=== PATIENT | female | born 1985 | race Caucasian/White ===

== ENCOUNTER → 2023-05-03 01:39 | Outpatient (CLI) | payer BC, SELFPAY ==
--- NOTE | 2023-05-03 08:15 | DI.US_ITS ---
Exam(s) US NEEDLE LOCAL OTHER WO RAD EXAM: US NEEDLE LOCAL OTHER WO RAD CLINICAL HISTORY: thyroid nodule,ULTRASOUND GUIDED BX,E04.1. COMPARISON: US US SOFT TISSUE HEAD/NECK from 04/11/2023 TECHNIQUE: Ultrasound was provided for guidance with performing thyroid biopsy.. FINDINGS: Please see procedure note for details. DATA REPOSITORY:
--- NOTE | 2023-05-03 13:30 | PAPNONF_PTH ---
PATIENT: Maria Victoria Andrew LOC: [facility] U#:[id number] AGE/SX: 39/F ROOM: RE05/03/[address]: Wanda Rothman : 1985 BED: DIS: SPEC #: [id number] RECD: 05/03/23 13:46 STATUS: MARISELA EDMONDSON #: [id number] SHHAEEN: 05/03/23 13:[address]: Wanda Rothman DEPT: [facility] Cytology RECD BY: Echo Joy ENTERED: 05/03/23 13:50 SP TYPE: CAROL ANN ELIAS DR: Kaiden Ellison Tissues: 1 - BODY FLUID CYTO-FINE NEEDLE [facility] Procedures: BODY FLUID CYTO-FINE NEEDLE ASPIRATE[facility] Comments: [id number] (PATH FNA CONSULT) (REFRIGERATED)
--- NOTE | 2023-05-03 13:50 | W.PROCNOTE ---
Date of service: 05/03/23 Time of Service: 13:50 Procedure Note Date of procedure: 05/03/23 Procedure: Ultrasound-guided FNA left thyroid nodule, pathology present Surgeon/Proceduralist/Physician: Manny Yan Procedure Diagnosis: Left thyroid nodule 3.6 cm Procedure Indications: The patient has a left-sided thyroid nodule meeting criteria for biopsy. Options were explained the patient regarding further management. She elected to undergo the above procedure. All questions were answered prior to the procedure. Consent was obtained prior to the procedure. Procedure Description: The patient was positioned in supine position and prepped and draped in appropriate fashion. Her neck was slightly extended. Ultrasound was used to localize the left thyroid nodule and then 1% lidocaine with 1/100,000 epinephrine was injected into the skin and subcutaneous tissues overlying the thyroid nodule. 25-gauge needle was then passed into the thyroid nodule, and after obtaining what appeared to be adequate specimen was sent to pathology who verified adequate cellularity. 2 additional passes were made for potential Afirma. After ensuring adequate hemostasis the sterile dressing was applied and the patient was allowed to sit and then stand. Her vital signs remained stable. She will remove the bandage tonight and not replace it. She will call with any signs of infection. She may use ibuprofen or Tylenol for any discomfort. She will call if she does not hear from me within 1 week. She had no further questions. She is comfortable with this plan.
== END ==
PROVIDERS: PCP Student in an Organized Health Care Education/Training Program; Visit Provider Registered Nurse Maternal Newborn
DX: E04.1 Nontoxic single thyroid nodule (principal)
CPT/HCPCS: 10005; 76942; 88104